=== PATIENT | female | born 1930 | race Caucasian/White ===

== ENCOUNTER 2021-11-20 09:05 | Inpatient (IN) | payer MEDICARE, BC ==
[~2021-11-20] VITALS: Ht 165.1 cm; Wt 65.4 kg
[2021-11-20] MEDS ORDERED: LEVODOPA (09:26)
[2021-11-20] MEDS ORDERED: ATORVASTATIN (09:26)
[2021-11-20] MEDS ORDERED: AMIODARONE (09:26)
[2021-11-20] MEDS ORDERED: DONEPEZIL (09:26)
[2021-11-20] MEDS ORDERED: METHOTREXATE (09:26)
[2021-11-20] MEDS ORDERED: CARBIDOPA (09:26)
--- NOTE | 2021-11-20 09:27 | NUR ---
Hospice- [facility] [phone] Family Janes, son- [phone] Briseida, daughter in law- [phone]
[2021-11-20 09:44] LABS: HEMATOCRIT 33.9 % (31.2-41.9); MEAN CORPUSCULAR HEMOGLOBIN 29.5 uug (24.7-32.8); MEAN CORPUSCULAR VOLUME 89.1 fL (75.5-95.3); PLATELET COUNT (AUTO) 153 K/uL (179-408)
[2021-11-20 09:52] LABS: ALANINE AMINOTRANSFERASE < 6 U/L (14-59); ALKALINE PHOSPHATASE 132 U/L (50-136); ASPARTATE AMINOTRANSFERASE 14 U/L (15-37); BILIRUBIN,DIRECT 0.2 mg/dL (0.0-0.2); BILIRUBIN,TOTAL 0.7 mg/dL (0.2-1.0); CARBON DIOXIDE 30 mmol/L (21-32); CHLORIDE 105 mmol/L (98-107); GLUCOSE 100 mg/dL (74-106); POTASSIUM 3.5 mmol/L (3.5-5.1); TOTAL PROTEIN, SERUM 6.1 g/dL (6.4-8.2); UREA NITROGEN, BLOOD 17 mg/dL (7-18)
[2021-11-20] MEDS ORDERED: AMIO100T4 PO (10:36)
[2021-11-20] MEDS ORDERED: DONE10TA44 PO (10:36)
[2021-11-20] MEDS ORDERED: ATOR10TA PO (10:36)
[2021-11-20] MEDS ORDERED: HYDR-894 PO (10:39)
[2021-11-20] MEDS ORDERED: LORA1TAB PO (10:40)
[2021-11-20] MEDS ORDERED: TEMA7.5C2 PO (10:40)
[2021-11-20] MEDS ORDERED: DONE10TA11 PO (10:43)
[2021-11-20] MEDS ORDERED: MEMA10TA PO (10:43)
[2021-11-20] MEDS ORDERED: CARB25TA3 PO (10:45)
[2021-11-20] MEDS ORDERED: Z GUARD REMEDY PASTE 57 GM TUBE TOP PRN (12:15)
[2021-11-20] MEDS ORDERED: MORPHINE SULFATE 2 MG/1 ML DISP.SYRIN IV PRN (12:15)
[2021-11-20] MEDS ORDERED: ONDANSETRON 4 MG/2 ML VIAL IV PRN (12:15)
[2021-11-20] MEDS ORDERED: MAGNESIUM HYDROXIDE 30 ML LIQUID UDC PO PRN (12:15)
[2021-11-20] MEDS ORDERED: ACETAMINOPHEN 325 MG TABLET PO PRN (12:15)
--- NOTE | 2021-11-20 12:43 | NUR ---
Patient is moved to ER hallway per Dr Thapa & RN Enzo, pending available medical-sugical bed & nurse.
--- NOTE | 2021-11-20 14:00 | NUR ---
Patient is back in ER bed 4B for bedside echocardiogram. COVID swab was sent to lab.
[2021-11-20] MEDS ORDERED: CARB1TAB21 PO (16:46)
[2021-11-20] MEDS ORDERED: CARBIDOPA/LEVODOPA 25-100MG TABLET PO SCH (17:00)
--- NOTE | 2021-11-20 17:10 | NUR ---
RECEIVED PATIENT BY BRITTANEY 89 YEARS OLD FROM ED S/P FALL SHE IS ALERT BUT IS CONFUSED PLACED INTO BED MADE COMFORTABLE [facility] IS INTACT WITH NO S/S OF INFILTERATION AT THIS TIME DR ORDONEZ AWARE THAT THE PATIENT IS HERE AND VERIFIED ORDERS STATED THAT ORTHO DR WILSON IS AWARE AND WILL BE HERE TO SEE PATIENT.
--- NOTE | 2021-11-20 18:05 | NUR ---
DR DEE HERE SEEN PATIENT AND SPOKE WITH PATIENTS SON LINDSEY RE SURGERY TOMORROW AND THEY ARE AGREEABLE WILL CALL THEM TO OBTAIN CONSCENT.
[2021-11-20] MEDS: AMIODARONE HCL 200 MG TABLET PO SCH (18:19)
[2021-11-20] MEDS: MEMANTINE HCL 10 MG TABLET PO SCH (18:19)
[2021-11-20] MEDS: CARBIDOPA/LEVODOPA 25-100MG TABLET PO SCH (18:20)
[2021-11-20] MEDS: hydrALAZINE HCL 25 MG TABLET PO SCH (18:20)
[2021-11-20] MEDS: ENOXAPARIN SODIUM 40 MG/0.4 ML DISP.SYRIN SQ SCH (18:20)
[2021-11-20] MEDS: LORAZEPAM 1 MG TABLET PO SCH (18:28)
--- NOTE | 2021-11-20 19:03 | NUR ---
CALLED PATIENTS DAUGHTER IN LAW NIKKY TO OBTAIN CONSCENT LEFT HER A MESSAGE IN HER VOICE MAIL AWAITING RETURN CALL.PATIENT IS CONFUSED NOW STATED THAT SHE CALLED A TAXI WONDERING WHEN THE TAXI WILL BE HERE.
--- NOTE | 2021-11-20 20:00 | NUR ---
PATIENT ALERT BUT FORGETFUL, NO SOB NO CHEST PAIN, PATIENT HAS NO COMPLAIN OF PAIN AT THIS TIME, PATIENT INCONTINENT OF BLADDER, PASSING GAS ALSO. AM RN ABLE TO OBTAIN CONSENT FOR R HIP SURGERY VIA PHONE. VITAL SIGNS STABLE, CONT TO MONITOR.
[2021-11-20] MEDS: ATORVASTATIN 10 MG TABLET PO SCH (20:46)
[2021-11-20] MEDS: DONEPEZIL 10 MG TABLET PO SCH (20:46)
[2021-11-20 21:00] VITALS: BP 105/69
[2021-11-20] MEDS ORDERED: TEMAZEPAM 7.5 MG CAPSULE PO PRN (21:00)
[2021-11-21] MEDS: LORAZEPAM 1 MG TABLET PO SCH ×3 (01:00→17:53)
[2021-11-21 04:35] VITALS: BP 133/70
--- NOTE | 2021-11-21 05:56 | NUR ---
PATIENT AWAKE BUT FORGETFUL, HAS NO COMPLAIN OF PAIN EXCEPT WHEN MOVING PATIENT FOR ADL'S, KEPT CLEAN AND DRY, REMAINS NPO FOR PROCEDURE IN AM. PATIENT FORGETS THAT SHE CANNOT AMBULATE AT THIS TIME DUE TO FX, CONT TO REORIENT. CONT TO MONITOR.
[2021-11-21 06:10] LABS: CREATININE 0.9 mg/dL (0.6-1.3); MAGNESIUM 1.7 mg/dL (1.8-2.4); PHOSPHOROUS 3.8 mg/dL (2.5-4.9); POTASSIUM 4.1 mmol/L (3.5-5.1)
[2021-11-21] MEDS: PANTOPRAZOLE SODIUM 40 MG TABLET.DR PO SCH (06:14)
[2021-11-21 06:17] LABS: HEMATOCRIT 35.9 % (31.2-41.9); MEAN CORPUSCULAR HEMOGLOBIN 29.2 uug (24.7-32.8); MEAN CORPUSCULAR VOLUME 88.4 fL (75.5-95.3); PLATELET COUNT (AUTO) 173 K/uL (179-408)
[2021-11-21 07:28] LABS: *BILIRUBIN,URIN 1+ (NEGATIVE); *BLOOD, URINE NEGATIVE (NEGATIVE); *CLARITY,URINE CLOUDY (CLEAR); *COLOR,URINE YELLOW (YELLOW); *KETONES,URINE 1+ (NEGATIVE); *UROBILINOGEN,URINE 0.2 E.U./dl (NORMAL); LEUKOCYTE ESTERASE ,URINE NEGATIVE (NEGATIVE); NITRITE, URINE NEGATIVE (NEGATIVE); PH,URINE 5.5 (5.0-8.0); UGLUCOSE NEGATIVE (NEGATIVE)
--- NOTE | 2021-11-21 07:41 | NUR ---
RECEIVED PATIENT AWAKE ALERT TO SELF BUT IS CONFUSED AND DISORIENTED SHE IS NOTHING BY MOUTH PENDING SURGERY TODAY ASSISTED WITH REPOSITIONING Q2H ON ROOM AIR WITH NO SHORTNESS OF BREATH MANE CATH PATENT TO GRAVITY DRAINAGE CALL LIGHTS AND PERSONAL BELONGINGS ARE WITHIN EASY REACH MADE COMFORTABLE AND WILL CONTINUE TO OBSERVE.
[2021-11-21] MEDS: hydrALAZINE HCL 25 MG TABLET PO SCH ×2 (08:19→17:53)
[2021-11-21] MEDS: ENOXAPARIN SODIUM 40 MG/0.4 ML DISP.SYRIN SQ SCH (08:20)
[2021-11-21] MEDS: AMIODARONE HCL 200 MG TABLET PO SCH (08:20)
[2021-11-21] MEDS: MEMANTINE HCL 10 MG TABLET PO SCH ×2 (08:20→17:54)
[2021-11-21] MEDS: CARBIDOPA/LEVODOPA 25-100MG TABLET PO SCH ×2 (08:20→17:54)
--- NOTE | 2021-11-21 08:20 | NUR ---
PATIENT IS FOR SURGERY TODAY AND IS NPO ALL ORAL MEDS HELD AND LOVENOX HELD TODAY DUE TO THE SURGERY.
[2021-11-21] MEDS: Z GUARD REMEDY PASTE 57 GM TUBE TOP SCH ×2 (10:14→20:16)
--- NOTE | 2021-11-21 10:35 | NUR ---
PATIENT PICKED UP BY BED FOR SURGERY IN SATISFACTORY CONDITION HER PRIVATE RADAR REPAIRER WILLIAM IS AT HER BEDSIDE.
[2021-11-21] MEDS ORDERED: ROCURONIUM BROMIDE 50 MG/5 ML VIAL ONE (10:43)
[2021-11-21] MEDS ORDERED: FENTANYL CITRATE 250 MCG/5 ML AMPUL ONE (10:43)
[2021-11-21] MEDS ORDERED: SEVOFLURANE 250 ML BOTTLE ONE (10:54)
[2021-11-21] MEDS ORDERED: MAGNESIUM OXIDE 400 MG TABLET PO ONE (11:00)
[2021-11-21] MEDS ORDERED: BUPIVACAINE 0.25% 30 ML VIAL ONE (11:11)
[2021-11-21] MEDS ORDERED: NEOSTIGMINE METHYLSULFATE 10 MG/10 ML VIAL IM ONE (12:57)
[2021-11-21] MEDS ORDERED: SEVOFLURANE 250 ML BOTTLE IH ONE (12:57)
[2021-11-21] MEDS ORDERED: ETOMIDATE 20 MG/10 ML VIAL IV ONE (12:57)
[2021-11-21] MEDS ORDERED: DEXAMETHASONE SOD PHOSPHATE 4 MG INJ IV ONE (12:57)
[2021-11-21] MEDS ORDERED: ONDANSETRON 4 MG/2 ML VIAL IV ONE (12:57)
[2021-11-21] MEDS ORDERED: LIDOCAINE-MPF 2% 5 ML VIAL IJ ONE (12:57)
[2021-11-21] MEDS ORDERED: CEFAZOLIN 1 G VIAL IM ONE (12:57)
[2021-11-21] MEDS ORDERED: GLYCOPYRROLATE 0.2 MG/ML VIAL IJ ONE (12:57)
[2021-11-21] MEDS ORDERED: LABETALOL HCL 100 MG/20 ML VIAL ONE (13:10)
[2021-11-21 13:54] LABS: HEMATOCRIT 33.8 % (31.2-41.9)
--- NOTE | 2021-11-21 14:12 | NUR ---
RETURNED FROM SURGERY BY BED AWAKE ALERT TO SELF SOMEWHAT GROOGY VERBALLY RESPONDS WHEN SPOKEN TO DENIES PAIN OR DISCOMFORTS AT THIS TIME.ON O2 AT 4L/M BY NASAL CANULA WITH NO SHORTNESS OF BREATH AT THIS TIME.RIGHT HIP WITH DRESSING ON THREE SITES BUT THE SUPERIOR ONE HAS SCANTY OLD DRAINGE THAT IS DRY THE OTHER TWO ARE C/D/I DVT PUMP APPLIED MADE COMFORTABLE WILL CONTINUE TO OBSERVE.
[2021-11-21 15:55] VITALS: BP 112/68
--- NOTE | 2021-11-21 18:00 | NUR ---
AWAKE KEKER STATED NOT TOO HUNGRY BUT ATE APPLE SAUCE AND JELLO WITH NO NAUSEA OR VOMINTING AT THIS TIME MAG LEVEL IS 1.37 WITH REPLACEMENT ORDERED WILL CONTINUE TO OBSERVE.
[2021-11-21] MEDS ORDERED: CEFAZOLIN 1 G in IV DEXTROSE 5% 50 ML IV SCH (19:30)
--- NOTE | 2021-11-21 19:30 | NUR ---
Received patient lying in bed. Asleep but arouse to tactile stimuli. AOx2. In no apparent distress. Appears comfortable. O2 at 4LPM via NC in place. IV site on right FA intact and patent. Incision site on right hip and thigh area with dressing dry and intact. Kaufman catheter intact and draining via gravity. Safety measure initiated and call light within reached.
[2021-11-21 20:00] VITALS: BP 124/74
[2021-11-21] MEDS: CEFAZOLIN 1 G in IV DEXTROSE 5% 50 ML IV SCH (20:16)
[2021-11-21] MEDS: ATORVASTATIN 10 MG TABLET PO SCH (20:16)
[2021-11-21] MEDS: DONEPEZIL 10 MG TABLET PO SCH (20:16)
[2021-11-22] MEDS: CEFAZOLIN 1 G in IV DEXTROSE 5% 50 ML IV SCH (03:30)
[2021-11-22 04:00] VITALS: BP 112/58
[2021-11-22] MEDS: LORAZEPAM 1 MG TABLET PO SCH ×5 (05:47→23:07)
[2021-11-22] MEDS: PANTOPRAZOLE SODIUM 40 MG TABLET.DR PO SCH (06:06)
--- NOTE | 2021-11-22 06:14 | NUR ---
Patient asleep most of the night but easily arouse to verbal stimuli. No anxiety noted. On O2 at 4LPM via NC in place. No SOB noted. IV site on right FA intact and patent. No adverse reaction noted from IV antibiotic. Incision site on right hip and thigh area with dressing remains intact. Kaufman catheter draining via gravity. Needs assessed and attended to. Safety measure maintained and call light within reached.
[2021-11-22 06:40] LABS: HEMATOCRIT 27.7 % (31.2-41.9); MEAN CORPUSCULAR HEMOGLOBIN 29.7 uug (24.7-32.8); MEAN CORPUSCULAR VOLUME 89.4 fL (75.5-95.3); PLATELET COUNT (AUTO) 148 K/uL (179-408)
[2021-11-22 07:08] LABS: CARBON DIOXIDE 28 mmol/L (21-32); CHLORIDE 107 mmol/L (98-107); CREATININE 1.5 mg/dL (0.6-1.3); GLUCOSE 182 mg/dL (74-106); MAGNESIUM 1.8 mg/dL (1.8-2.4); PHOSPHOROUS 4.7 mg/dL (2.5-4.9); POTASSIUM 4.1 mmol/L (3.5-5.1); UREA NITROGEN, BLOOD 32 mg/dL (7-18)
[2021-11-22] MEDS: MEMANTINE HCL 10 MG TABLET PO SCH ×2 (08:16→16:36)
[2021-11-22] MEDS: hydrALAZINE HCL 25 MG TABLET PO SCH ×2 (08:16→16:36)
[2021-11-22] MEDS: CARBIDOPA/LEVODOPA 25-100MG TABLET PO SCH ×2 (08:16→16:36)
[2021-11-22] MEDS: AMIODARONE HCL 200 MG TABLET PO SCH (08:16)
[2021-11-22] MEDS: HYDROCODONE/APAP 5-325MG TABLET PO PRN (08:22)
[2021-11-22] MEDS: ENOXAPARIN SODIUM 30 MG/0.3 ML DISP.SYRIN SUBCUT SCH (08:23)
[2021-11-22] MEDS ORDERED: ENOXAPARIN SODIUM 40 MG/0.4 ML DISP.SYRIN SQ SCH (09:00)
[2021-11-22] MEDS: Z GUARD REMEDY PASTE 57 GM TUBE TOP SCH ×2 (09:10→20:49)
[2021-11-22 11:54] VITALS: BP 121/59
[2021-11-22] MEDS: IV D5/ 0.9% NACL 1,000 ML IV PRN (12:24)
[2021-11-22 16:00] VITALS: BP_SYST 130; BP_DIAS 42; BP_DIAS 61
[2021-11-22 20:00] VITALS: BP 94/68
[2021-11-22] MEDS: ATORVASTATIN 10 MG TABLET PO SCH (20:49)
[2021-11-22] MEDS: DONEPEZIL 10 MG TABLET PO SCH (20:49)
--- NOTE | 2021-11-22 21:47 | NUR ---
Started new IV on left FA #22G. Restarted IVF.
[2021-11-23 04:00] VITALS: BP 117/52
[2021-11-23] MEDS: LORAZEPAM 1 MG TABLET PO SCH ×4 (05:53→23:48)
--- NOTE | 2021-11-23 05:57 | NUR ---
Patient slept well last night. In no apparent distress. Denies any pain or SOB. On O2 at 2LPM via NC in place. IV site on left FA intact and patent. IVF infusing. Kaufman catheter intact and patent. Only had 200 ml or yellow urine output through out the shift. Bladder scan done. Only noted with 4ml of urine on the bladder. No bladder distention noted. Needs assessed and attended to. Safety measure maintained and call light within reached.
[2021-11-23] MEDS: PANTOPRAZOLE SODIUM 40 MG TABLET.DR PO SCH (06:12)
[2021-11-23] MEDS: IV D5/ 0.9% NACL 1,000 ML IV PRN (06:22)
[2021-11-23 07:12] LABS: HEMATOCRIT 24.2 % (31.2-41.9); MEAN CORPUSCULAR VOLUME 88.5 fL (75.5-95.3); PLATELET COUNT (AUTO) 136 K/uL (179-408)
[2021-11-23 07:28] LABS: CARBON DIOXIDE 27 mmol/L (21-32); CHLORIDE 107 mmol/L (98-107); CREATININE 1.7 mg/dL (0.6-1.3); GLUCOSE 181 mg/dL (74-106); POTASSIUM 4.4 mmol/L (3.5-5.1); UREA NITROGEN, BLOOD 53 mg/dL (7-18)
[2021-11-23] MEDS: CARBIDOPA/LEVODOPA 25-100MG TABLET PO SCH ×2 (09:02→17:43)
[2021-11-23] MEDS: hydrALAZINE HCL 25 MG TABLET PO SCH (09:03)
[2021-11-23] MEDS: HYDROCODONE/APAP 5-325MG TABLET PO PRN ×2 (09:04→17:44)
[2021-11-23] MEDS: AMIODARONE HCL 200 MG TABLET PO SCH (09:05)
[2021-11-23] MEDS: MEMANTINE HCL 10 MG TABLET PO SCH ×2 (09:05→17:44)
[2021-11-23] MEDS: ENOXAPARIN SODIUM 30 MG/0.3 ML DISP.SYRIN SUBCUT SCH (09:06)
[2021-11-23] MEDS: Z GUARD REMEDY PASTE 57 GM TUBE TOP SCH ×2 (09:07→20:54)
[2021-11-23 12:25] VITALS: BP 123/53
[2021-11-23 16:26] VITALS: BP 124/58
[2021-11-23] MEDS: DONEPEZIL 10 MG TABLET PO SCH (20:54)
[2021-11-23] MEDS: IV LACTATED RINGERS SOLUTION 1,000 ML IV PRN (20:54)
[2021-11-23] MEDS: ATORVASTATIN 10 MG TABLET PO SCH (20:54)
[2021-11-23] MEDS: MEGESTROL ACETATE 20 MG TABLET PO SCH (20:54)
[2021-11-23 21:00] VITALS: BP 145/63
[2021-11-24] MEDS: LORAZEPAM 1 MG TABLET PO SCH ×4 (06:00→18:00)
[2021-11-24] MEDS: PANTOPRAZOLE SODIUM 40 MG TABLET.DR PO SCH (06:20)
[2021-11-24 06:48] VITALS: BP_SYST 147; BP_SYST 157; BP_DIAS 77
--- NOTE | 2021-11-24 07:20 | NUR ---
Received patient asleep in bed. On 2L O2 via NC. No signs of acute distress. Kaufman catheter draining clear, yellow urine. Lactated Ringers running at 75cc/hr. Bed alarm on for safety. Call light within reach. Will continue to monitor.
[2021-11-24 08:47] LABS: HEMATOCRIT 23.3 % (31.2-41.9); MEAN CORPUSCULAR HEMOGLOBIN 29.4 uug (24.7-32.8); MEAN CORPUSCULAR VOLUME 88.8 fL (75.5-95.3); PLATELET COUNT (AUTO) 123 K/uL (179-408)
[2021-11-24] MEDS: CARBIDOPA/LEVODOPA 25-100MG TABLET PO SCH ×2 (09:21→16:12)
[2021-11-24] MEDS: MEGESTROL ACETATE 20 MG TABLET PO SCH ×2 (09:21→16:12)
[2021-11-24] MEDS: MEMANTINE HCL 10 MG TABLET PO SCH ×2 (09:21→16:12)
[2021-11-24] MEDS: ENOXAPARIN SODIUM 30 MG/0.3 ML DISP.SYRIN SUBCUT SCH (09:23)
[2021-11-24] MEDS: Z GUARD REMEDY PASTE 57 GM TUBE TOP SCH ×2 (09:24→22:35)
[2021-11-24 09:32] LABS: CREATININE 1.2 mg/dL (0.6-1.3); MAGNESIUM 2.1 mg/dL (1.8-2.4); PHOSPHOROUS 1.6 mg/dL (2.5-4.9); POTASSIUM 4.4 mmol/L (3.5-5.1)
[2021-11-24] MEDS: IV LACTATED RINGERS SOLUTION 1,000 ML IV PRN (11:09)
[2021-11-24 12:02] VITALS: BP 120/69
[2021-11-24] MEDS ORDERED: MEGE20TA4 PO (14:39)
[2021-11-24] MEDS ORDERED: ENOX30DI SUBCUT (14:39)
[2021-11-24 16:00] VITALS: BP 139/64
[2021-11-24] MEDS ORDERED: POTASSIUM PHOSPHATE MM 15 MMOL in IV NORMAL SALINE 250 ML IV ONE (17:00)
--- NOTE | 2021-11-24 18:23 | NUR ---
Patient comfortable in bed, asleep but easily arousable. On 1L NC, saturating 97%. No signs of acute distress. Patient denies pain/ discomfort. IV on Left FA patent and intact, Potassium Phosphate running well. Kaufman catheter draining clear, yellow urine. Patient kept clean and comfortable. Ativan nonadministered, patient was asleep. Bed alarm on. Call light within reach. Will endorse to incoming shift for continuity of care.
[2021-11-24 20:00] VITALS: BP 110/68
[2021-11-24 20:14] LABS: HEMATOCRIT 23.6 % (31.2-41.9)
[2021-11-24] MEDS: ATORVASTATIN 10 MG TABLET PO SCH (21:05)
[2021-11-24] MEDS: DONEPEZIL 10 MG TABLET PO SCH (21:05)
--- NOTE | 2021-11-24 21:58 | NUR ---
Received with kphos infusing at ordered rate. medications due given,
[2021-11-25] MEDS: LORAZEPAM 1 MG TABLET PO SCH ×3 (00:15→12:00)
[2021-11-25 00:33] VITALS: BP 135/61
[2021-11-25 04:18] VITALS: BP 133/60
--- NOTE | 2021-11-25 05:45 | NUR ---
lorazepam dose held as patient is asleep most times and not restless,
[2021-11-25] MEDS: IV LACTATED RINGERS SOLUTION 1,000 ML IV PRN (08:13)
[2021-11-25] MEDS: MEGESTROL ACETATE 20 MG TABLET PO SCH (08:26)
[2021-11-25] MEDS: CARBIDOPA/LEVODOPA 25-100MG TABLET PO SCH (08:26)
[2021-11-25] MEDS: MEMANTINE HCL 10 MG TABLET PO SCH (08:26)
[2021-11-25] MEDS: ENOXAPARIN SODIUM 30 MG/0.3 ML DISP.SYRIN SUBCUT SCH (08:27)
[2021-11-25] MEDS: Z GUARD REMEDY PASTE 57 GM TUBE TOP SCH (08:27)
[2021-11-25 08:36] LABS: CREATININE 0.8 mg/dL (0.6-1.3); PHOSPHOROUS 2.5 mg/dL (2.5-4.9); POTASSIUM 5.1 mmol/L (3.5-5.1)
[2021-11-25] MEDS ORDERED: PANTOPRAZOLE ORAL SUSPENSION 40 MG SUSPDR.PKT GT SCH (09:00)
[2021-11-25] MEDS: HYDROCODONE/APAP 5-325MG TABLET PO PRN (09:09)
[2021-11-25 12:00] VITALS: BP 145/63
--- NOTE | 2021-11-25 16:20 | NUR ---
Discharged patient to [facility]. On 1L O2 via NC. No signs of acute distress. Removed lang catheter per MD order. Discharge instructions given to family at bedside. Belongings accounted for. IV access removed. ID armband removed. Nursing report given to RN at SNF. Patient left hospital via ambulance rney.
[2021-11-26] MEDS ORDERED: ENOXAPARIN SODIUM 40 MG/0.4 ML DISP.SYRIN SQ SCH (09:00)
== END 2021-11-25 16:10 | DRG 480 ==
LOC: ER 09:05 → MEDSURG3 16:34
PROVIDERS: ATTEND Internal Medicine
PROC: 0QS606Z Reposition Right Upper Femur with Intramedullary Internal Fixation Device, Open Approach (ICD-10-PCS; principal; 2021-11-21)
DX: S72.141A Displaced intertrochanteric fracture of right femur, initial encounter for closed fracture (principal); N17.0 Acute kidney failure with tubular necrosis; I50.32 Chronic diastolic (congestive) heart failure; E46 Unspecified protein-calorie malnutrition; W01.0XXA Fall on same level from slipping, tripping and stumbling without subsequent striking against object, initial encounter; G30.9 Alzheimer's disease, unspecified; F02.80 Dementia in other diseases classified elsewhere, unspecified severity, without behavioral disturbance, psychotic disturbance, mood disturbance, and anxiety; D69.6 Thrombocytopenia, unspecified; E78.5 Hyperlipidemia, unspecified; G20 Parkinson's disease; I11.0 Hypertensive heart disease with heart failure; I48.91 Unspecified atrial fibrillation; Z20.822 Contact with and (suspected) exposure to COVID-19; Y92.009 Unspecified place in unspecified non-institutional (private) residence as the place of occurrence of the external cause; E88.09 Other disorders of plasma-protein metabolism, not elsewhere classified
CPT/HCPCS: 36415; 70030-TC; 71045; 72170; 73502; 73503; 73551; 83735; 84100; 85018; 85025; 85730; 86850; 86900; 86901; 93005; 93307; 97161; A4649; A4663; C1713; G0378; J0690; J1100; J1650; J2405; J3010; J3490; J7040; J7042; J7050; J7060; J7120